=== PATIENT | male | born 1960 | race Caucasian/White ===

== ENCOUNTER 2019-04-13 16:39 | Inpatient (IN) | payer OTHER ==
[~2019-04-13] VITALS: Wt 6.0 kg
[~2019-04-13 16:39] MED LIST: KETO10TA2 PO; LEVAQUIN500 MG PO; LEVSIN/SL0.125 MG PO; PROTONIX40 MG PO; RAYOS5 MG PO; TREXALL5 MG PO
--- NOTE | 2019-04-13 16:58 | NUR ---
SE RECIBE PACIENTE QUE REFIERE MAREOS DESDE HOY CON ESCALOFRIOS Y EPISODIOS DE CALENTURA DESDE ESTA MANANA. PACIENTE REFIERE NADIA ESTADO EN UNIDAD INTENSIVO HACE 4 RYAN ATRAS Y FUE OPERADO POR DRA. ALEE CLAYTON. PACIENTE MUESTRA LINEA DE DRENAJE EN AREA DEL ABDOMEN.
--- NOTE | 2019-04-13 17:53 | NUR ---
MS Neno GILMORE ORIENTA A PACIENTE ORIENTA A PACIENTE SOBRE ORDENES MEDICAS, COLECTA MUESTRAS DE JAMEEL, CANALIZA VENA Y ADMINISTRA MAGUE.
--- NOTE | 2019-04-13 23:55 | NUR ---
PACIENTE ALERTA Y ORIENTADO X3. EN LEVI CON BARANDAS ELEVADAS. IV FLUID PATENTE Y JAYJAY DE EDEMA Y ERITEMA. PACIENTE NPO AL MOMENTO. CONSULTADO CON DRA. NAVARRO. SE MANTIENE BAJO OBSERVACION POR CAMBIOS SIGNIFICATIVOS.
--- NOTE | 2019-04-14 | NUR ---
PACIENTE CON DRENAJE EN AREA ABDOMINAL, NO ESTAN DRENANDO AL MOMENTO.
--- NOTE | 2019-04-14 03:02 | NUR ---
SE LE OFRECE SARAH BETH A PTE QUIEN REALIZA EVACUACION. SE LIMPIA A PT Y SE PROVEE COMODIDAD. SE LE ORIENTA SOBRE TX Y SE LE ADMINISTRA MEDICAMENTO FADIA PRESCITO PT TOLERA.
--- NOTE | 2019-04-14 07:05 | NUR ---
SE RECIBE PTE ALERTA Y ORIENTADO X3 EL CUAL SE OBSERVA EN LEVI CON BARANDAS ELEVADAS. PTE SE OBSERVA CON 0.9NSS BAJANDO A 125ML/HR. PTE CON ORDEN NPO. PTE EN ESPERA DE MEDICINA INTERNA PARA EVALUACION. PTE CON 2 DREJANES COLOCADOS. PTE SE CONTINUA MONITORIANDO POR CAMBIOS.
[2019-04-20] MEDS ORDERED: ACID CONTROL150 MG PO (10:14)
[2019-04-20] MEDS ORDERED: METHOTREXATE2.5 MG PO (10:16)
== END 2019-04-21 10:36 | disposition home or self-care (01) | DRG 379 ==
LOC: ER 16:39 → SURH 04-14 08:03
PROVIDERS: ADMIT Colon & Rectal Surgery
PROC: 02HV33Z Insertion of Infusion Device into Superior Vena Cava, Percutaneous Approach (ICD-10-PCS; principal; 2019-04-15)
DX: K57.21 Diverticulitis of large intestine with perforation and abscess with bleeding (principal); L24.9 Irritant contact dermatitis, unspecified cause; I87.2 Venous insufficiency (chronic) (peripheral); K63.89 Other specified diseases of intestine

== ENCOUNTER 2021-04-26 10:20 | Emergency (ER) | payer OTHER ==
[~2021-04-26] VITALS: Ht 177.8 cm; Wt 83.9 kg
[~2021-04-26 10:20] MED LIST changes: +ACID CONTROL150 MG PO; +METHOTREXATE2.5 MG PO
[2021-04-26] MEDS ORDERED: PEPCID AC20 MG PO (17:49)
[2021-04-26] MEDS ORDERED: KETO10TA2 PO (17:49)
== END 2021-04-26 18:19 ==
LOC: ER 10:20
DX: K40.00 Bilateral inguinal hernia, with obstruction, without gangrene, not specified as recurrent (principal); R10.31 Right lower quadrant pain; Z20.822 Contact with and (suspected) exposure to COVID-19

== ENCOUNTER 2021-05-29 10:53 | Outpatient (CLI) | payer OTHER ==
[~2021-05-29 10:53] MED LIST changes: +PEPCID AC20 MG PO
== END 2021-05-29 15:00 | disposition home or self-care (01) ==
LOC: LAB 10:53
PROVIDERS: ATTEND Surgery
DX: R10.9 Unspecified abdominal pain (principal); I10 Essential (primary) hypertension; Z03.818 Encounter for observation for suspected exposure to other biological agents ruled out

== ENCOUNTER 2021-06-01 08:47 | Day surgery (SDC) | payer OTHER ==
[2021-06-01] MEDS ORDERED: TYLENOL ARTHRI650 MG PO (10:55)
[2021-06-01] MEDS ORDERED: NEURONTIN300 MG PO (10:55)
[2021-06-01] MEDS ORDERED: MIRALAX17 GM PO (10:55)
[2021-06-01] MEDS ORDERED: ULTRAM50 MG PO (10:55)
== END 2021-06-01 17:30 | disposition home or self-care (01) ==
LOC: CIR.AMB 08:47
PROVIDERS: ATTEND Surgery
DX: K42.9 Umbilical hernia without obstruction or gangrene (principal); K40.20 Bilateral inguinal hernia, without obstruction or gangrene, not specified as recurrent; D17.5 Benign lipomatous neoplasm of intra-abdominal organs; Z20.822 Contact with and (suspected) exposure to COVID-19

== ENCOUNTER 2023-07-02 16:13 | Emergency (ER) | payer OTHER ==
[~2023-07-02] VITALS: Ht 177.8 cm; Wt 81.6 kg
[~2023-07-02 16:13] MED LIST changes: +MIRALAX17 GM PO; +NEURONTIN300 MG PO; +TYLENOL ARTHRI650 MG PO; +ULTRAM50 MG PO
[2023-07-02] MEDS ORDERED: CLINDAMYCIN PHOSPHATE 150 MG/ML (600mg) IV ONE (19:30)
[2023-07-02 19:44] LABS: HEMATOCRIT 47.2 % (39.0-48.0); HEMOGLOBIN 16.2 g/dL (13-16.00); MEAN CELL VOLUME 90.9 fL (80.0-100.00); MEAN CORPUSCULAR HEMOGLOBIN 31.1 pg (27.00-32.0); MEAN CORPUSCULAR HGB CONC 34.2 g/dl (32.0-36.0); PLATELET COUNT 261 K/uL (150-450); RED BLOOD COUNT 5.19 M/uL (4.00-6.00); RED CELL DISTRIBUTION WIDTH 13.5 % (11.5-14.5)
[2023-07-02 20:16] LABS: PH,URINE 5.5 (5.0-8.0); URINE APPEARANCE Clear; URINE BILIRRUBIN Negative (NEGATIVE); URINE BLOOD Negative; URINE COLOR Dark Yellow; URINE GLUCOSE Negative (NEGATIVE); URINE LEUKOCYTE Negative; URINE NITRATE Negative; URINE PROTEIN 30 (NEGATIVE); URINE UROBILINOGEN 0.2 E.U./dl
[2023-07-02 20:20] LABS: URINE BACTERIA 45.3 uL (0.0-1933); URINE RBC 9.4 uL (0.0-20.8); URINE WBC 17.1 uL (0.0-23.2)
[2023-07-02 20:28] LABS: CALCIUM 9.6 mg/dL (8.5-10.1); CREATININE SERUM 1.26 mg/dL (0.70-1.30); GFR 57.62; POTASSIUM 3.32 mEq/L (3.5-5.1)
[2023-07-02 21:32] LABS: URINE CRYSTALS MODERATE /HPF
[2023-07-02] MEDS ORDERED: DICLOFENAC SODI50 MG PO (22:01)
[2023-07-02] MEDS ORDERED: CLEOCIN HCL300 MG PO (22:01)
== END 2023-07-02 23:38 | disposition home or self-care (01) ==
LOC: ER 16:13
PROVIDERS: Nurse Practitioner Family
DX: K04.7 Periapical abscess without sinus (principal); K08.89 Other specified disorders of teeth and supporting structures; Z88.0 Allergy status to penicillin; Z20.822 Contact with and (suspected) exposure to COVID-19

== ENCOUNTER 2024-02-05 17:08 | Emergency (ER) | payer OTHER ==
[~2024-02-05] VITALS: Ht 167.6 cm; Wt 78.5 kg
[~2024-02-05 17:08] MED LIST changes: +CLEOCIN HCL300 MG PO; +DICLOFENAC SODI50 MG PO
[2024-02-05] MEDS ORDERED: TAMSULOSIN HCL 0.4 MG CAP PO SCH (18:08)
[2024-02-05] MEDS ORDERED: KETOROLAC TROMETHAMINE 30 MG VIAL IV ONE (18:15)
[2024-02-05] MEDS ORDERED: KETOROLAC TROMETHAMINE 30 MG VIAL ONE (18:22)
[2024-02-05] MEDS ORDERED: TAMSULOSIN HCL 0.4 MG CAP PO ONE (18:22)
[2024-02-05 19:10] LABS: HEMATOCRIT 45.1 % (39.0-48.0); HEMOGLOBIN 15.7 g/dL (13-16.00); MEAN CELL VOLUME 91.6 fL (80.0-100.00); MEAN CORPUSCULAR HGB CONC 34.9 g/dl (32.0-36.0); PLATELET COUNT 255 K/uL (150-450); RED BLOOD COUNT 4.92 M/uL (4.00-6.00); RED CELL DISTRIBUTION WIDTH 13.6 % (11.5-14.5)
[2024-02-05 19:31] LABS: ALBUMIN 4.2 gm/dL (3.4-5.0); BILIRUBIN TOTAL 1.06 mg/dL (0.3-1.2); CREATININE SERUM 1.08 mg/dL (0.70-1.30); GFR 68.62; GLOBULINA 3.3 G/DL (2.4-3.5); POTASSIUM 3.61 mEq/L (3.5-5.1); TOTAL PROTEIN 7.5 gm/dL (6.4-8.2)
[2024-02-05 19:38] LABS: PH,URINE 5.5 (5.0-8.0); URINE APPEARANCE Cloudy; URINE BACTERIA 32.7 uL (0.0-1933); URINE BILIRRUBIN Negative (NEGATIVE); URINE COLOR Yellow; URINE EPITHELIAL CELLS 4.3 uL (0.0-38.8); URINE GLUCOSE Negative (NEGATIVE); URINE KETONE Trace (NEGATIVE); URINE LEUKOCYTE Negative; URINE NITRATE Negative; URINE PROTEIN Trace (NEGATIVE); URINE RBC 40.1 uL (0.0-20.8); URINE WBC 13.2 uL (0.0-23.2)
[2024-02-05 20:05] LABS: URINE BLOOD Trace; URINE CAST 0.76 uL (0.0-1.40); URINE CRYSTALS MODERATE /HPF; URINE MUCUS HEAVY
[2024-02-05] MEDS ORDERED: DICLOFENAC SODI75 MG PO (21:30)
[2024-02-05] MEDS ORDERED: COZAAR50 MG PO (21:37)
== END 2024-02-05 21:49 | disposition home or self-care (01) ==
LOC: ER 17:10
PROVIDERS: General Practice
DX: R10.31 Right lower quadrant pain (principal); N20.0 Calculus of kidney; K57.30 Diverticulosis of large intestine without perforation or abscess without bleeding; K80.20 Calculus of gallbladder without cholecystitis without obstruction; Z88.0 Allergy status to penicillin

== ENCOUNTER → 2024-11-20 | Emergency (ER) | payer OTHER ==
[~2024-11-20] VITALS: Ht 177.8 cm; Wt 72.6 kg
[~2024-11-20] MED LIST changes: +COZAAR50 MG PO; +DICLOFENAC SODI75 MG PO; +DIPHENHYDRAMINE HCL 50 MG/ML VIAL 1ML IM ONE; +METHYLPREDNISOLONE SOD SUCC 125 MG VIAL IM ONE
[2024-11-20 09:50] LABS: BASO % 0.2 % (0.1-1.2); EOS # 0.15 (0.04-0.54); EOS % 1.7 % (0.7-7.0); LYMPH # 1.26 (1.18-3.74); LYMPH % 14.3 % (19.3-53.1); MEAN PLATELET VOLUME 9.80 fl (9.4-12.4); MONO # 0.56 (0.24-0.82); MONO % 6.3 % (4.7-12.5); NEUT # 6.81 (1.56-6.13); NEUT % 77.3 % (34.0-71.1); RED CELL DISTRIBUTION WIDTH 12.4 % (11.6-14.4)
== END | disposition home or self-care (01) ==
LOC: ER 08:19
PROVIDERS: General Practice
DX: L20.9 Atopic dermatitis, unspecified (principal); I10 Essential (primary) hypertension; Z88.0 Allergy status to penicillin